=== PATIENT | female | born 1980 | race Caucasian/White ===

== ENCOUNTER 2023-09-15 11:18 | Outpatient (AMB) | payer MEDICARE, MEDICAID, SELFPAY ==
--- NOTE | 2023-09-15 11:22 | MHC.OFFVIS ---
Vital Signs 09/15/23 11:47 Height 5 ft 8 in Weight 172 lb 6 oz BMI 26.2 BP 136/84 Blood Pressure Location Lt brachial Position Sitting Respiration 16 Pulse 93 Pulse Source Pulse Oximeter Pulse Oximetry (%) 97 Oxygen Delivery Method Room Air Intake Visit Reasons: CHRONIC NECK AND BACK PAIN Intake Note: Patient comes in for initial visit was referred by primary care. She was accompanied by?sister Keira. Reports pain 10/22. Accompanied by: Sister Allergies No Known Allergies Allergy (Verified 09/15/23 11:41) HPI Comments Details: Blanca is very pleasant 43 years old female who presents in my office with complains on severe pain in the neck as well as pain on the right shoulder and pain in between the shoulder blades. 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 She did not have pain after that. However she went for another neurosurgical procedure in 2019 when 100 meningioma tumors were removed from her neck and she reported that after that surgery she started to experience chronic neck pain. The surgeries were performed as [facility]. She reports that she can not sleep normally can not do activities of daily living she can not take care of herself but she can not function normally. 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 She needs walker or cane for ambulation. She reports that cold weather aggravates her pain as well as movements. Heat and oral medications aggravate his pain as well. She had an MRI 6 months ago at [facility] her cervical spine. She never had physical therapy and in this case physical therapy probably is relevant. She never had any injections. She is currently under contract with her doctor who prescribes her benzodiazepines, Adderall, as well as small doses of the opioids. The patient tries to stretch out those doses of the opioids. Her past medical history besides described above is significant for headaches hypertension fatigue dizziness day and fainting and menstrual dysfunction. The least of her surgeries are as follows right ear tumor removal 2008 cervical laminectomy 2015 left ear decompression 2016 CLINICAL EDUCATION ASSISTANT shunt placement 2018, brain meningioma removed to 2019 hysterectomy and repair of vaginal cuff DC dehiscence 2021 and yet another surgery on the brain in 2023. She denies smoking cigarettes drinking alcohol she drinks coffee and she very rarely consumes cannabis edibles. She denies addiction to the drugs. [facility] Medical History (Updated 09/15/23 @ 12:45 by Alexis López MD) Hypothyroidism Pernicious anemia Vestibular schwannoma Meningioma, cerebral ADHD (attention deficit hyperactivity disorder) Family History (Updated 09/15/23 @ 12:05 by Maisha Alberto) Father DM type 2 (diabetes mellitus, type 2) HTN (hypertension) Oropharyngeal cancer Maternal Grandfather DM type 2 (diabetes mellitus, type 2) HTN (hypertension) Hyperlipidemia Myocardial infarction Brother HTN (hypertension) Paternal Grandmother HTN (hypertension) Hyperlipidemia Alcoholism Depression Skin cancer Social History (Updated 09/15/23 @ 12:00 by Maisha Alberto) Alcohol intake: current Patient Tobacco Use Status: Former Tobacco user Review of Systems Const Reports fatigue, Reports headache(s), Denies weight gain and Denies weight loss Eyes Denies blurry vision ENT Denies Normal hearing present, Reports headache(s) and Reports hearing loss Card Denies dyspnea Resp Denies cough and Denies dyspnea GI Denies constipation and Denies diarrhea Denies urinary frequency and Denies dysuria Musc Denies numbness Neuro Denies Normal hearing present, Denies Abnormal speech present, Denies confusion, Reports headache(s), Denies numbness and Denies Sensory deficit (Neuro) Psych Denies confusion and Denies depression Endo Reports fatigue Physical Exam Vital Signs: Last Vital Signs Pulse 93 09/15/23 11:47 Resp 16 09/15/23 11:47 BP 136/84 09/15/23 11:47 Pulse Ox 97 09/15/23 11:47 Oxygen Delivery Method Room Air 09/15/23 11:47 BMI result Body Mass Index 26.2 Const General: no acute distress; No confusion Orientation/consciousness: patient oriented x3 and No confusion Eyes General: appearance normal, both eyes and all related structures Pupils: Equal, round and reactive pupils present EOM: EOMs intact bilaterally Neck Other: On inspection there is very well-healed scar in the projection of the posterior neck spreading from approximately C3 to all the way down C7 projection of the vertebral spinous processes in the neck. There is no signs of inflammation, there is no redness no swelling no tenderness on palpation. Neck: No full ROM Chest Chest palpation & inspection: normal inspection of the chest Resp Effort & Inspection: normal respiratory effort, able to speak in complete sentences, normal respiratory pattern, no audible wheezes and no cough Cardio Jugular venous distension: no JVD GI Inspection: Yes normal to inspection Neuro General: patient oriented x3, gait normal and No confusion Cranial nerves: Yes Equal, round and reactive pupils present and No Normal hearing present Speech: No Abnormal speech present Gait exam (Neuro): Normal gait present Motor exam (neuro): 5/5 motor strength present throughout Sensory Exam: No Sensory deficit (Neuro) Extrem General: No pedal edema Psych Speech and movement: Normal speech and movement present Affect: normal affect Attitude: cooperative Thought process: Normal thought process present Thought content: Normal thought content present Insight: Good insight present (Psych) Judgement: Good judgement present (Psych) Assessment & Plan Assessment & Plan (1) Osteoarthritis of shoulder region: Code(s): M19.019 - Primary osteoarthritis, unspecified shoulder Category: Medical (2) Neurofibromatosis, type 2: Code(s): Q85.02 - Neurofibromatosis, type 2 Category: Medical (3) Postlaminectomy syndrome, cervical region: Code(s): M96.1 - Postlaminectomy syndrome, not elsewhere classified Category: Medical (4) Chronic pain syndrome: Code(s): G89.4 - Chronic pain syndrome Category: Medical Plan This patient is suffering from severe, relentless, terminal degenerative nerve disease which eventually can cause of this patient. She already has increased intracranial pressure and she has CLINICAL EDUCATION ASSISTANT shunt. She already had extensive procedures on her brain for removal of meningiomas and schwannomas. She is suffering from severe pain. I offered her to ways to treat her pain. I can admit her to our chronic opioid program and continue prescribing opioids until the rest of her days or I could offer her implantation of the intrathecal pain pump to help her pain with very small doses of the intrathecal sufentanyl medication. Patient stated that she already had so many surgeries and in the future she might face another surgeries on her cranium involved cervical spine, thoracic spine or lumbar spine. Those surgeries will be debilitating and recovery will be prolonged and difficult. She decided to go for chronic oral opioid therapy with us. However the question remains whether by signing the contract for opioid therapy with us she will undermine the contract for Adderall with her primary care physician. I need primary care physician to send me effects stating otherwise. Then I will be able to invite her in this office and we will discuss chronic opioid therapy. I will schedule for now appointment with her for 1 month. Also she is suffering from posterior shoulder pain which seem to be not related to her pain in the back of the neck. I will send her for the x-ray of the right shoulder to rule out arthritis in the shoulder joint. I also requested her to sign medical information release note so we can get images from [facility]. Orders: Orders XR shoulder RT min 2V Today M19.019 - Primary osteoarthritis, unspecified shoulder Patient Instructions: Patient is clinically and she uses telephone and help of her sister to communicate. That is why the entire conversation today took more than 1 hour. Coding Level of Care Code New Pt Level 5 (12516) Diagnoses Osteoarthritis of shoulder region M19.019 Neurofibromatosis, type 2 Q85.02 Postlaminectomy syndrome, cervical region M96.1 Chronic pain syndrome G89.4
[2023-09-15 11:47] VITALS: BP 136/84; PULSE 93; RESP 16; O2SAT 97; BMI 26.2
== END 2023-09-15 12:44 | disposition home or self-care (01) ==
PROVIDERS: PCP Pediatrics; Referring Provider Pediatrics; Visit Provider Anesthesiology
DX: M19.019 Primary osteoarthritis, unspecified shoulder (principal); Q85.02 Neurofibromatosis, type 2; M96.1 Postlaminectomy syndrome, not elsewhere classified; G89.4 Chronic pain syndrome
CPT/HCPCS: 99205

== ENCOUNTER → 2023-09-15 11:18 | Outpatient (BNVA) | payer MEDICARE, MEDICAID, SELFPAY | PROVIDERS: PCP Pediatrics; Referring Provider Pediatrics; Visit Provider Anesthesiology | DX: M54.2 Cervicalgia (principal); M54.9 Dorsalgia, unspecified; M19.011 Primary osteoarthritis, right shoulder; Q85.02 Neurofibromatosis, type 2; M96.1 Postlaminectomy syndrome, not elsewhere classified; G89.4 Chronic pain syndrome; Z79.891 Long term (current) use of opiate analgesic | CPT/HCPCS: 99202 ==

== ENCOUNTER 2023-09-18 11:54 | Outpatient (REF) | payer MEDICARE, MEDICAID, SELFPAY ==
--- NOTE | ~2023-09-18 | XR_ITS ---
EXAMINATION: XR SHOULDER, RIGHT CLINICAL INFORMATION: Right shoulder pain. Osteoarthritis. COMPARISON: None available. TECHNIQUE: AP, Grashey, scapular Y views of the right shoulder. FINDINGS: The bones and soft tissues are normal. No fracture. Glenohumeral and acromioclavicular alignment is anatomic with normal joint space. No abnormal soft tissue calcifications. XR/XR shoulder RT min 2V IMPRESSION: Unremarkable examination.
== END 2023-09-18 11:55 | disposition home or self-care (01) ==
LOC: HO.HMGCX 11:54
PROVIDERS: Visit Provider Anesthesiology
DX: M19.011 Primary osteoarthritis, right shoulder (principal)
CPT/HCPCS: 73030

== ENCOUNTER → 2023-09-30 09:42 | Outpatient (BNVA) | payer MEDICARE, MEDICAID, SELFPAY | PROVIDERS: PCP Pediatrics; Visit Provider Anesthesiology | DX: Z51.81 Encounter for therapeutic drug level monitoring (principal); Z79.899 Other long term (current) drug therapy | CPT/HCPCS: 99211 ==

== ENCOUNTER 2023-10-13 13:18 | Outpatient (AMB) | payer MEDICARE, MEDICAID, SELFPAY ==
--- NOTE | 2023-10-13 13:20 | MHC.OFFVIS ---
Vital Signs 10/13/23 13:21 Height 5 ft 8 in Weight 170 lb 8 oz BMI 25.9 BP 124/83 Blood Pressure Location Rt brachial Position Sitting Pulse 122 H Pulse Source Pulse Oximeter Pulse Oximetry (%) 100 Oxygen Delivery Method Room Air Intake Visit Reasons: 1 Month Follow Up/Opioid Contract Discussion Intake Note: Blanca is a 43 year old female who presents to the office today for a 1 month follow up/opiod contract discussion. Allergies No Known Allergies Allergy (Verified 10/13/23 13:24) HPI Comments Details: Blanca is back in my office to get started on chronic opioid program. Very prolonged and detailed conversation was held. On PHQ questionnaire patient is score was equal to 8. On addiction score questionnaire her score was equal to 12. Therefore she was admitted to the program with the total score of 20 which justifies moderate risk for opioid addiction. She was explained opioid contract opioid consent and information on chronic opioid therapy. The explanation was made via special phone application, the patient is deaf. Her sister was also presenting during the conversation and she was helping patient to understand the nature of the contract in details of the agreement. The patient is taking benzodiazepines as a muscle relaxants, she is currently on Valium. We agreed that we will taper Valium down as soon as it is feasible. To help her with the spastic sensation in his shoulder I will start her on the baclofen 10 mg t.i.d.. We agreed that she will take her Valium only 2 pills a day. I also explained to her to not to take her Valium within 2 hours of her opioid oxycodone. We also agreed that she will not be taking Valium and oxycodone within 2 hours of going to bed. I will prescribe her Narcan. I explained to the patient and to her sister Alyson. They both expressed understanding. Safety storage of the opioid medication was discussed. Patient also was explained that only in this office she will be able to receive scheduled to and schedule 3 substances except Adderall which is prescribed to her by her primary care physician. She was explained that only in the operating room or emergency room as well as on the hospital floor she will be able to be prescribed opioid medications by other providers. She will schedule appointment with us in 2 weeks. Will prescribe the patient next opioid prescription after the pill count. Prior: very pleasant 43 years old female who presents in my office with complains on severe pain in the neck as well as pain on the right shoulder and pain in between the shoulder blades. 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 She did not have pain after that. However she went for another neurosurgical procedure in 2019 when 100 meningioma tumors were removed from her neck and she reported that after that surgery she started to experience chronic neck pain. The surgeries were performed as [facility]. 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 She needs walker or cane for ambulation. She had an MRI 6 months ago at [facility] her cervical spine. She never had physical therapy and in this case physical therapy probably is irrelevant. She never had any injections. [facility] Medical History (Updated 09/15/23 @ 12:45 by Alexis López MD) Hypothyroidism Pernicious anemia Vestibular schwannoma Meningioma, cerebral ADHD (attention deficit hyperactivity disorder) Family History (Updated 09/15/23 @ 12:05 by Maisha Alberto) Father DM type 2 (diabetes mellitus, type 2) HTN (hypertension) Oropharyngeal cancer Maternal Grandfather DM type 2 (diabetes mellitus, type 2) HTN (hypertension) Hyperlipidemia Myocardial infarction Brother HTN (hypertension) Paternal Grandmother HTN (hypertension) Hyperlipidemia Alcoholism Depression Skin cancer Social History (Updated 09/15/23 @ 12:00 by Maisha Alberto) Alcohol intake: current Patient Tobacco Use Status: Former Tobacco user Review of Systems Const All systems reviewed & are unremarkable except as noted in HPI and below ENT Denies Normal hearing present Neuro Denies Normal hearing present, Denies Abnormal speech present, Denies confusion and Denies Sensory deficit (Neuro) Psych Denies confusion Physical Exam Vital Signs: Last Vital Signs Pulse 122 H 10/13/23 13:21 BP 124/83 10/13/23 13:21 Pulse Ox 100 10/13/23 13:21 Oxygen Delivery Method Room Air 10/13/23 13:21 BMI result Body Mass Index 25.9 Const General: no acute distress; No confusion Orientation/consciousness: patient oriented x3 and No confusion Eyes General: appearance normal, both eyes and all related structures Pupils: Equal, round and reactive pupils present EOM: EOMs intact bilaterally Neck Other: On inspection there is very well-healed scar in the projection of the posterior neck spreading from approximately C3 to all the way down C7 projection of the vertebral spinous processes in the neck. There is no signs of inflammation, there is no redness no swelling no tenderness on palpation. Neck: No full ROM Chest Chest palpation & inspection: normal inspection of the chest Resp Effort & Inspection: normal respiratory effort, able to speak in complete sentences, normal respiratory pattern, no audible wheezes and no cough Cardio Jugular venous distension: no JVD GI Inspection: Yes normal to inspection Neuro General: patient oriented x3, gait normal and No confusion Cranial nerves: Yes Equal, round and reactive pupils present and No Normal hearing present Speech: No Abnormal speech present Gait exam (Neuro): Normal gait present Motor exam (neuro): 5/5 motor strength present throughout Sensory Exam: No Sensory deficit (Neuro) Extrem General: No pedal edema Psych Speech and movement: Normal speech and movement present Affect: normal affect Attitude: cooperative Thought process: Normal thought process present Thought content: Normal thought content present Insight: Good insight present (Psych) Judgement: Good judgement present (Psych) Assessment & Plan Assessment & Plan (1) Osteoarthritis of shoulder region: Code(s): M19.019 - Primary osteoarthritis, unspecified shoulder Category: Medical (2) Neurofibromatosis, type 2: Code(s): Q85.02 - Neurofibromatosis, type 2 Category: Medical (3) Postlaminectomy syndrome, cervical region: Code(s): M96.1 - Postlaminectomy syndrome, not elsewhere classified Category: Medical (4) Chronic pain syndrome: Code(s): G89.4 - Chronic pain syndrome Category: Medical Plan This patient is suffering from severe, relentless, terminal degenerative nerve disease which eventually can cause of this patient. She already has increased intracranial pressure and she has STRUCTURAL STEEL WORKER HELPER shunt. She already had extensive procedures on her brain for removal of meningiomas and schwannomas. She is suffering from severe pain. She is admitted to our opioid program. The discussion is as above. The patient PHQ score is equal to 8. The patient's addiction questioning score is equal to 12. Total score is equal to 20 therefore her risk of addiction is moderate. The Adderall will be prescribed by primary care physician. The rest of the medications will be prescribed only in this office including scheduled 2 and schedule 3 prescriptions. Medications: New baclofen 10 mg PO TID 90 tabs 6RF 30 days naloxone 4 mg/actuation spray 1 dose into ONE nostril; alternate nostrils w each dose until help arrives 4 mg intranasal Q2M PRN 2 ea 8RF opioid overdose 1 day oxycodone Partial Fill upon patient request. 5 mg PO QID PRN 120 tabs 0RF pain 30 days Patient Instructions: I here by testify that I spent 55 minutes in conversation with this patient as well as planning her care and organizing this note. Coding Level of Care Code Est Pt Level 5 (50340) Diagnoses Osteoarthritis of shoulder region M19.019 Neurofibromatosis, type 2 Q85.02 Postlaminectomy syndrome, cervical region M96.1 Chronic pain syndrome G89.4
[2023-10-13 13:21] VITALS: BP 124/83; PULSE 122; O2SAT 100; BMI 25.9
== END 2023-10-13 15:01 | disposition home or self-care (01) ==
PROVIDERS: PCP Pediatrics; Visit Provider Anesthesiology
DX: G89.4 Chronic pain syndrome (principal); M19.019 Primary osteoarthritis, unspecified shoulder; M96.1 Postlaminectomy syndrome, not elsewhere classified; Q85.02 Neurofibromatosis, type 2
CPT/HCPCS: 99215

== ENCOUNTER → 2023-10-13 13:18 | Outpatient (BNVA) | payer MEDICARE, MEDICAID, SELFPAY | PROVIDERS: PCP Pediatrics; Visit Provider Anesthesiology | DX: M19.011 Primary osteoarthritis, right shoulder (principal); G89.4 Chronic pain syndrome; Q85.02 Neurofibromatosis, type 2; M96.1 Postlaminectomy syndrome, not elsewhere classified | CPT/HCPCS: 99212 ==

== ENCOUNTER 2023-10-28 11:05 | Outpatient (AMB) | payer MEDICARE, MEDICAID, SELFPAY ==
--- NOTE | 2023-10-28 11:06 | A.OFFVIS_ITS ---
Vital Signs 10/28/23 11:17 Height 5 ft 8 in Weight 175 lb BMI 26.6 BP 137/96 H Blood Pressure Location Lt brachial Position Sitting Pulse 109 H Pulse Source Pulse Oximeter Pulse Oximetry (%) 97 Oxygen Delivery Method Room Air Intake Visit Reasons: PILL COUNT Intake Note: Blanca comes in today for a pill count to oxycodone, patient should have 64 tablets and presents with 80 tablets which she last took today 10/28/23 6:30am. 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 She is deaf but able to communicate back after receiving information on her live transcribe domingo on the iPhone. Today, she is here for a pill count. Patient is supposed to have #64 pills, in her possession has #80 pills. This demonstrates a responsible attitude in regards to the medication regimen. Patient continues to report reasonable pain relief on her regimen of oxycodone 5 mg Q6H prn with no noted side effects. Patient also takes Adderall, prescribed by a primary care physician. She is tapering down Valium, currently twice a day, and at least 2 hours apart with oxycodone. She avoids Valium at bedtime as previously stated. Patient also started baclofen 1-2 pills per day without noted side effects. Patient's sister reports patient is starting new oral chemotherapy medication, rigatinib, prescribed via [facility]. She already has increased intracranial pressure and she has SKIVER WELT END shunt. Patient underwent extensive procedures on her brain for removal of meningiomas and schwannomas. She is in moderate-severe daily pain and reports current opioid regime allows her to be less symptomatic, more functional, and have better sleep. The patient PHQ score is equal to 8. The patient's addiction questioning score is equal to 12. Total score is equal to 20 therefore her risk of addiction is moderate. Denies any constipation, nausea, sedation, dizziness, or urinary retention. She reports increased ability to perform activities of daily living, better sleep, better interact socially and be more functional. PRIOR: Blanca is back in my office to get started on chronic opioid program. Very prolonged and detailed conversation was held. On PHQ questionnaire patient is score was equal to 8. On addiction score questionnaire her score was equal to 12. Therefore she was admitted to the program with the total score of 20 which justifies moderate risk for opioid addiction. She was explained opioid contract opioid consent and information on chronic opioid therapy. The explanation was made via special phone application, the patient is deaf. Her sister was also presenting during the conversation and she was helping patient to understand the nature of the contract in details of the agreement. The patient is taking benzodiazepines as a muscle relaxants, she is currently on Valium. We agreed that we will taper Valium down as soon as it is feasible. To help her with the spastic sensation in his shoulder I will start her on the baclofen 10 mg t.i.d.. We agreed that she will take her Valium only 2 pills a day. I also explained to her to not to take her Valium within 2 hours of her opioid oxycodone. We also agreed that she will not be taking Valium and oxycodone within 2 hours of going to bed. I will prescribe her Narcan. I explained to the patient and to her sister Alyson. They both expressed understanding. Safety storage of the opioid medication was discussed. Patient also was explained that only in this office she will be able to receive scheduled to and schedule 3 substances except Adderall which is prescribed to her by her primary care physician. She was explained that only in the operating room or emergency room as well as on the hospital floor she will be able to be prescribed opioid medications by other providers. She will schedule appointment with us in 2 weeks. Will prescribe the patient next opioid prescription after the pill count. Prior: very pleasant 43 years old female who presents in my office with complains on severe pain in the neck as well as pain on the right shoulder and pain in between the shoulder blades. 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 She did not have pain after that. However she went for another neurosurgical procedure in 2019 when 100 meningioma tumors were removed from her neck and she reported that after that surgery she started to experience chronic neck pain. The surgeries were performed as [facility]. 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 She needs walker or cane for ambulation. She had an MRI 6 months ago at [facility] her cervical spine. She never had physical therapy and in this case physical therapy probably is irrelevant. She never had any injections. ON LICENSE OF [facility] Medical History Hypothyroidism Pernicious anemia Vestibular schwannoma Meningioma, cerebral ADHD (attention deficit hyperactivity disorder) Family History Father DM type 2 (diabetes mellitus, type 2) HTN (hypertension) Oropharyngeal cancer Maternal Grandfather DM type 2 (diabetes mellitus, type 2) HTN (hypertension) Hyperlipidemia Myocardial infarction Brother HTN (hypertension) Paternal Grandmother HTN (hypertension) Hyperlipidemia Alcoholism Depression Skin cancer Social History Alcohol intake: current Patient Tobacco Use Status: Former Tobacco user Review of Systems Const All systems reviewed & are unremarkable except as noted in HPI and below Physical Exam General: Appears afebrile. Alert and oriented. Mood and affect appropriate. Follows and participates in conversation appropriately. Respiratory effort is unlabored. No cough. Able to transition from sit to stand with assistance of family. Ambulates with use of cane, with limping. Psych Appearance: grossly normal Mental Status: mental status grossly normal Speech and movement: Clear speech present and Other speech and movement exam findings present (Psych) (deaf, communicated back with use of live transcribing domingo on iPhone) Affect: normal affect Attitude: cooperative Thought process: Normal thought process present Thought content: Normal thought content present, suicidality, no hallucinations and Depressive thoughts present Insight: Good insight present (Psych) Judgement: Good judgement present (Psych) Results Reviewed Results Reviewed: No imaging reports are available for review. Assessment & Plan Assessment & Plan (1) Osteoarthritis of shoulder region: Code(s): M19.019 - Primary osteoarthritis, unspecified shoulder Category: Medical (2) Neurofibromatosis, type 2: Code(s): Q85.02 - Neurofibromatosis, type 2 Category: Medical (3) Postlaminectomy syndrome, cervical region: Code(s): M96.1 - Postlaminectomy syndrome, not elsewhere classified Category: Medical (4) Chronic pain syndrome: Code(s): G89.4 - Chronic pain syndrome Category: Medical Plan Patient has shown accountability for her medication regimen and the pill count was accurate. There is no evidence of misuse, abuse or diversion at this time. [facility] reviewed. Refill for oxycodone for 30 days sent with an advanced date of 11/15/23. Patient is aware of monitoring for any side effects. Patient has Narcan at home. Patient is starting new oral chemotherapy medication, rigatibib, prescribed through [facility] to shrink cerebral meningiomas. Adderall prescribed by patient's PCP for ADHD, consistent per [facility] review. All questions were answered and the patient is in agreement with the plan. Will follow up in one month for a pill count with Dr. López or sooner if needed. Medications: Refilled oxycodone Partial Fill upon patient request. 5 mg PO QID 30 days PRN 120 tabs 0RF pain Coding Level of Care Code Est Pt Level 4 (33541) Diagnoses Osteoarthritis of shoulder region M19.019 Neurofibromatosis, type 2 Q85.02 Postlaminectomy syndrome, cervical region M96.1 Chronic pain syndrome G89.4
[2023-10-28 11:17] VITALS: BP 137/96; PULSE 109; O2SAT 97; BMI 26.6
== END 2023-10-28 11:38 | disposition home or self-care (01) ==
PROVIDERS: PCP Pediatrics; Visit Provider Nurse Practitioner Family
DX: G89.4 Chronic pain syndrome (principal); M19.019 Primary osteoarthritis, unspecified shoulder; Q85.02 Neurofibromatosis, type 2; Z79.891 Long term (current) use of opiate analgesic; M96.1 Postlaminectomy syndrome, not elsewhere classified
CPT/HCPCS: 99214

== ENCOUNTER → 2023-10-28 11:05 | Outpatient (BNVA) | payer MEDICARE, MEDICAID, SELFPAY | PROVIDERS: PCP Pediatrics; Visit Provider Nurse Practitioner Family | DX: M19.019 Primary osteoarthritis, unspecified shoulder (principal); M96.1 Postlaminectomy syndrome, not elsewhere classified; Q85.02 Neurofibromatosis, type 2; G89.4 Chronic pain syndrome; Z51.81 Encounter for therapeutic drug level monitoring; Z79.891 Long term (current) use of opiate analgesic | CPT/HCPCS: 99212 ==

== ENCOUNTER 2023-11-25 10:57 | Outpatient (AMB) | payer MEDICARE, MEDICAID, SELFPAY ==
--- NOTE | 2023-11-25 11:03 | A.OFFVIS_ITS ---
Vital Signs 11/25/23 11:12 11/25/23 11:13 Height 5 ft 8 in Weight 175 lb BMI 26.6 BP 172/100 H 172/104 H Blood Pressure Location Lt brachial Rt brachial Position Sitting Sitting Pulse 100 101 H Pulse Source Pulse Oximeter Pulse Oximeter Pulse Oximetry (%) 98 99 Oxygen Delivery Method Room Air Room Air Intake Visit Reasons: Pill Count Intake Note: Blanca comes in today for a pill count to oxycodone, patient should have 100 tablets and presents with 104 tablets which she last took today 11/25/23 at 5:30am. 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 She is deaf but able to communicate back after receiving information on her live transcribe domingo on the iPhone. Today, she is here for a pill count. Patient is supposed to have #100 pills, in her possession has #114 pills. This demonstrates a responsible attitude in regards to the medication regimen. Patient continues to report reasonable pain relief on her regimen of oxycodone 5 mg Q6H prn with no noted side effects. Patient also takes Adderall, prescribed by a primary care physician. Patient is tapering down Valium, currently twice a day, and at least 2 hours apart with oxycodone. She avoids Valium at bedtime as previously stated. Patient also started baclofen 1-2 pills per day without any improvement, reports increases in blood pressure and increased anxiety. Patient reports she started new oral chemotherapy medication, rigatinib, prescribed via [facility]. She has increased intracranial pressure and she has BRIM FLEXER shunt. Patient underwent extensive procedures on her brain for removal of meningiomas and schwannomas. She is in moderate-severe daily pain and reports current opioid regime allows her to be less symptomatic, more functional, and have better sleep. The patient PHQ score is equal to 8. The patient's addiction questioning score is equal to 12. Total score is equal to 20 therefore her risk of addiction is moderate. Denies any constipation, nausea, sedation, dizziness, or urinary retention. She reports increased ability to perform activities of daily living, better sleep, better interact socially and be more functional. PRIOR: Blanca is back in my office to get started on chronic opioid program. Very prolonged and detailed conversation was held. On PHQ questionnaire patient is score was equal to 8. On addiction score questionnaire her score was equal to 12. Therefore she was admitted to the program with the total score of 20 which justifies moderate risk for opioid addiction. She was explained opioid contract opioid consent and information on chronic opioid therapy. The explanation was made via special phone application, the patient is deaf. Her sister was also presenting during the conversation and she was helping patient to understand the nature of the contract in details of the agreement. The patient is taking benzodiazepines as a muscle relaxants, she is currently on Valium. We agreed that we will taper Valium down as soon as it is feasible. To help her with the spastic sensation in his shoulder I will start her on the baclofen 10 mg t.i.d.. We agreed that she will take her Valium only 2 pills a day. I also explained to her to not to take her Valium within 2 hours of her opioid oxycodone. We also agreed that she will not be taking Valium and oxycodone within 2 hours of going to bed. I will prescribe her Narcan. I explained to the patient and to her sister Alyson. They both expressed understanding. Safety storage of the opioid medication was discussed. Patient also was explained that only in this office she will be able to receive scheduled to and schedule 3 substances except Adderall which is prescribed to her by her primary care physician. She was explained that only in the operating room or emergency room as well as on the hospital floor she will be able to be prescribed opioid medications by other providers. She will schedule appointment with us in 2 weeks. Will prescribe the patient next opioid prescription after the pill count. Prior: very pleasant 43 years old female who presents in my office with complains on severe pain in the neck as well as pain on the right shoulder and pain in between the shoulder blades. 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 She did not have pain after that. However she went for another neurosurgical procedure in 2019 when 100 meningioma tumors were removed from her neck and she reported that after that surgery she started to experience chronic neck pain. The surgeries were performed as [facility]. She is deaf after surgery in 2020 when neuroma was removed from the vestibular tumor she is using telephone device to communicate. She needs walker or cane for ambulation. She had an MRI 6 months ago at [facility] her cervical spine. She never had physical therapy and in this case physical therapy probably is irrelevant. She never had any injections. REPLACED BY [facility] Medical History Hypothyroidism Pernicious anemia Vestibular schwannoma Meningioma, cerebral ADHD (attention deficit hyperactivity disorder) Family History Father DM type 2 (diabetes mellitus, type 2) HTN (hypertension) Oropharyngeal cancer Maternal Grandfather DM type 2 (diabetes mellitus, type 2) HTN (hypertension) Hyperlipidemia Myocardial infarction Brother HTN (hypertension) Paternal Grandmother HTN (hypertension) Hyperlipidemia Alcoholism Depression Skin cancer Social History (Updated 11/25/23 @ 11:12 by IGNACIO Rebollar) Alcohol intake: current Patient Tobacco Use Status: Former Tobacco user Review of Systems Const All systems reviewed & are unremarkable except as noted in HPI and below Denies body aches, Denies chills, Denies difficulty sleeping, Denies fever(s), Denies night sweats, Denies weakness and Denies weight loss Card Denies chest pain, Denies irregular heart rhythm, Denies lightheadedness, Denies palpitations and Denies dyspnea on exertion Resp Denies dyspnea on exertion Neuro Denies weakness Endo Denies palpitations Physical Exam Vital Signs: Last Vital Signs Pulse 101 H 11/25/23 11:13 BP 172/104 H 11/25/23 11:13 Pulse Ox 99 11/25/23 11:13 Oxygen Delivery Method Room Air 11/25/23 11:13 BMI result Body Mass Index 26.6 General: Appears afebrile. Alert and oriented. Mood and affect appropriate. Follows and participates in conversation appropriately. Respiratory effort is unlabored. No cough. Able to transition from sit to stand with assistance of family. Ambulates with use of cane, with limping. Neck Neck: Yes no lymphadenopathy, Yes supple, No anterior neck swelling, No torticollis, Yes no JVD and No prominent dorsocervical fat pad Back/Spine/Pelvis Cervical Spine: cervical ROM normal, cervical muscular tenderness, cervical spasm and No Cervical spine tenderness Psych Appearance: grossly normal Mental Status: mental status grossly normal Speech and movement: Clear speech present and Other speech and movement exam findings present (Psych) (deaf, communicated back with use of live transcribing domingo on iPhone) Affect: normal affect Attitude: cooperative Thought process: Normal thought process present Thought content: Normal thought content present, suicidality, no hallucinations and Depressive thoughts present Insight: Good insight present (Psych) Judgement: Good judgement present (Psych) Results Reviewed Results Reviewed: No imaging reports are available for review. Assessment & Plan Assessment & Plan (1) Postlaminectomy syndrome, cervical region: Code(s): M96.1 - Postlaminectomy syndrome, not elsewhere classified Category: Medical (2) Chronic pain syndrome: Code(s): G89.4 - Chronic pain syndrome Category: Medical (3) Muscle spasms of neck: Code(s): M62.838 - Other muscle spasm Category: Medical (4) Osteoarthritis of shoulder region: Code(s): M19.019 - Primary osteoarthritis, unspecified shoulder Category: Medical (5) Neurofibromatosis, type 2: Code(s): Q85.02 - Neurofibromatosis, type 2 Category: Medical Plan Patient has shown accountability for her medication regimen and the pill count was accurate. There is no evidence of misuse, abuse or diversion at this time. [facility] Refill for oxycodone for 30 days sent with an advanced date of 12/23/23. Patient is aware of monitoring for any side effects. Patient has Narcan at home. Patient has started new oral chemotherapy medication, rigatibib, prescribed through [facility] to shrink cerebral meningiomas. Adderall prescribed by patient's PCP for ADHD, consistent per [facility] review. Patient will discontinue Baclofen due to increased anxiety and elevated BP. I prescribed her chlorzoxazone. Side effects and precautions were discussed with patient and her family. All questions were answered and the patient is in agreement with the plan. Follow up in one month for a pill count with Dr. López or sooner if needed. Medications: New chlorzoxazone 500 mg PO TID PRN 90 tabs 0RF muscle spasm 30 days G89.4 - Chronic pain syndrome, M62.838 - Other muscle spasm, M96.1 - Postlaminectomy syndrome, not elsewhere classified Refilled oxycodone Partial Fill upon patient request. 5 mg PO QID PRN 120 tabs 0RF pain 30 days Discontinued baclofen Discontinued Reason: Patient no longer taking 10 mg PO TID 30 days 90 tabs 6RF Coding Level of Care Code Est Pt Level 4 (29807) Complex EM visit Add On G2211 Diagnoses Postlaminectomy syndrome, cervical region M96.1 Chronic pain syndrome G89.4 Muscle spasms of neck M62.838 Osteoarthritis of shoulder region M19.019 Neurofibromatosis, type 2 Q85.02
[2023-11-25 11:12] VITALS: BP 172/100; PULSE 100; O2SAT 98; BMI 26.6
[2023-11-25 11:13] VITALS: BP 172/104; PULSE 101; O2SAT 99
== END 2023-11-25 11:29 | disposition home or self-care (01) ==
PROVIDERS: PCP Pediatrics; Visit Provider Nurse Practitioner Family
DX: M96.1 Postlaminectomy syndrome, not elsewhere classified (principal); G89.4 Chronic pain syndrome; M62.838 Other muscle spasm; M19.019 Primary osteoarthritis, unspecified shoulder; Q85.02 Neurofibromatosis, type 2
CPT/HCPCS: 99214; G2211

== ENCOUNTER → 2023-11-25 10:57 | Outpatient (BNVA) | payer MEDICARE, MEDICAID, SELFPAY | PROVIDERS: PCP Pediatrics; Visit Provider Nurse Practitioner Family | DX: M96.1 Postlaminectomy syndrome, not elsewhere classified (principal); G89.4 Chronic pain syndrome; M62.838 Other muscle spasm; M19.011 Primary osteoarthritis, right shoulder; Q85.02 Neurofibromatosis, type 2; Z51.81 Encounter for therapeutic drug level monitoring; Z79.891 Long term (current) use of opiate analgesic | CPT/HCPCS: 99212 ==

== ENCOUNTER 2023-12-09 10:41 | Outpatient (AMB) | payer MEDICARE, MEDICAID, SELFPAY ==
--- NOTE | 2023-12-09 10:49 | A.OFFVIS_ITS ---
Vital Signs 12/09/23 11:01 Height 5 ft 8 in Weight 163 lb 8 oz BMI 24.9 BP 142/88 H Blood Pressure Location Lt brachial Position Sitting Respiration 16 Pulse 102 H Pulse Source Pulse Oximeter Pulse Oximetry (%) 98 Oxygen Delivery Method Room Air Intake Visit Reasons: pill count/ medication review Intake Note: Patient comes in for pill count. She was accompanied by sister Sharee. Reports pain 3.5/10. Accompanied by: Sister Allergies No Known Allergies Allergy (Verified 12/09/23 11:03) HPI Comments Details: Blanca is back in my office today for the pill count and medications refill. She reports that for doses of the oxycodone for day is little bit too much she is managing her pain with only 2-3 pills. We agreed that she next time we will receive prescription only t.i.d. I will assume over the prescription of the Valium. Her pill count today: She supposed to have 44 medication pills in her possession. She presented with 84 pills in her possession. Therefore pill count is correct and demonstrates reliable attitude to were the opioid medications. She is on Adderall and Valium helps her to overcome Adderall side effects. She has Narcan prescribed at home. She today expressed desire eventually to go for taper of the opioid medications to decrease and hopefully eliminate oral opioids. She is in physical therapy. She started new oral chemotherapy medication, rigatinib, prescribed via [facility]. She has increased intracranial pressure and she has ORGAN P[employer] VOICER shunt. Patient underwent extensive procedures on her brain for removal of meningiomas and schwannomas. She is in moderate-severe daily pain and reports current opioid regime allows her to be less symptomatic, more functional, and have better sleep. The patient PHQ score is equal to 8. The patient's addiction questioning score is equal to 12. Total score is equal to 20 therefore her risk of addiction is moderate. Denies any constipation, nausea, sedation, dizziness, or urinary retention. She reports increased ability to perform activities of daily living, better sleep, better interact socially and be more functional. PRIOR: Blanca is back in my office to get started on chronic opioid program. Very prolonged and detailed conversation was held. On PHQ questionnaire patient is score was equal to 8. On addiction score questionnaire her score was equal to 12. Therefore she was admitted to the program with the total score of 20 which justifies moderate risk for opioid addiction. She was explained opioid contract opioid consent and information on chronic opioid therapy. The explanation was made via special phone application, the patient is deaf. Her sister was also presenting during the conversation and she was helping patient to understand the nature of the contract in details of the agreement. The patient is taking benzodiazepines as a muscle relaxants, she is currently on Valium. We agreed that we will taper Valium down as soon as it is feasible. To help her with the spastic sensation in his shoulder I will start her on the baclofen 10 mg t.i.d.. We agreed that she will take her Valium only 2 pills a day. I also explained to her to not to take her Valium within 2 hours of her opioid oxycodone. We also agreed that she will not be taking Valium and oxycodone within 2 hours of going to bed. I will prescribe her Narcan. I explained to the patient and to her sister Alyson. They both expressed understanding. Safety storage of the opioid medication was discussed. Patient also was explained that only in this office she will be able to receive scheduled to and schedule 3 substances except Adderall which is prescribed to her by her primary care physician. She was explained that only in the operating room or emergency room as well as on the hospital floor she will be able to be prescribed opioid medications by other providers. She will schedule appointment with us in 2 weeks. Will prescribe the patient next opioid prescription after the pill count. Prior: very pleasant 43 years old female who presents in my office with complains on severe pain in the neck as well as pain on the right shoulder and pain in between the shoulder blades. 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 She did not have pain after that. However she went for another neurosurgical procedure in 2019 when 100 meningioma tumors were removed from her neck and she reported that after that surgery she started to experience chronic neck pain. The surgeries were performed as [facility]. 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 She needs walker or cane for ambulation. She had an MRI 6 months ago at [facility] her cervical spine. She never had physical therapy and in this case physical therapy probably is irrelevant. She never had any injections. [facility] Medical History Hypothyroidism Pernicious anemia Vestibular schwannoma Meningioma, cerebral ADHD (attention deficit hyperactivity disorder) Family History Father DM type 2 (diabetes mellitus, type 2) HTN (hypertension) Oropharyngeal cancer Maternal Grandfather DM type 2 (diabetes mellitus, type 2) HTN (hypertension) Hyperlipidemia Myocardial infarction Brother HTN (hypertension) Paternal Grandmother HTN (hypertension) Hyperlipidemia Alcoholism Depression Skin cancer Social History (Updated 11/25/23 @ 11:12 by IGNACIO Rebollar) Alcohol intake: current Patient Tobacco Use Status: Former Tobacco user Review of Systems Const All systems reviewed & are unremarkable except as noted in HPI and below Physical Exam Vital Signs: Last Vital Signs Pulse 102 H 12/09/23 11:01 Resp 16 12/09/23 11:01 BP 142/88 H 12/09/23 11:01 Pulse Ox 98 12/09/23 11:01 Oxygen Delivery Method Room Air 12/09/23 11:01 BMI result Body Mass Index 24.9 General: Appears afebrile. Alert and oriented. Mood and affect appropriate. Follows and participates in conversation appropriately. Respiratory effort is unlabored. No cough. Able to transition from sit to stand with assistance of family. Ambulates with use of cane, with limping. Neck Neck: Yes no lymphadenopathy, Yes supple, No anterior neck swelling, No torticollis, Yes no JVD and No prominent dorsocervical fat pad Back/Spine/Pelvis Cervical Spine: cervical ROM normal, cervical muscular tenderness, cervical spasm and No Cervical spine tenderness Psych Appearance: grossly normal Mental Status: mental status grossly normal Speech and movement: Clear speech present and Other speech and movement exam findings present (Psych) (deaf, communicated back with use of live transcribing domingo on iPhone) Affect: normal affect Attitude: cooperative Thought process: Normal thought process present Thought content: Normal thought content present, suicidality, no hallucinations and Depressive thoughts present Insight: Good insight present (Psych) Judgement: Good judgement present (Psych) Assessment & Plan Assessment & Plan (1) Postlaminectomy syndrome, cervical region: Code(s): M96.1 - Postlaminectomy syndrome, not elsewhere classified Category: Medical (2) Chronic pain syndrome: Code(s): G89.4 - Chronic pain syndrome Category: Medical (3) Muscle spasms of neck: Code(s): M62.838 - Other muscle spasm Category: Medical (4) Osteoarthritis of shoulder region: Code(s): M19.019 - Primary osteoarthritis, unspecified shoulder Category: Medical (5) Neurofibromatosis, type 2: Code(s): Q85.02 - Neurofibromatosis, type 2 Category: Medical Plan Her pill count is correct with excessive amount of medication. I will decrease the doses of the opioids to 3 pills a day. Her new prescription will come on 12/20/2023. I also will assume prescription of the Valium/diazepam 5 mg b.i.d.. She is being prescribed Adderall and Adderall side effects including anxiety, jittery, tremors contracted by prescription of the volume. Unfortunately there is no other way to deal with this condition. She has Narcan at home. She had started new oral chemotherapy medication, rigatibib, prescribed through [facility] to shrink cerebral meningiomas. Adderall prescribed by patient's PCP for ADHD, consistent per [facility] review. She tried baclofen and it caused her anxiety increase. She presented today with her sister in my office and they understood the danger of consuming benzodiazepines and opioids together. She expressed understanding that she is not taking opioid medications within 2 hours of benzodiazepines. Her sister express that she understands how to use Narcan. Medications: New diazepam 5 mg PO BID PRN 60 tabs 5RF anxiety 30 days Changed From oxycodone Partial Fill upon patient request. 5 mg PO QID 30 days PRN 120 tabs 0RF pain To oxycodone Partial Fill upon patient request. 5 mg PO TID PRN 90 tabs 0RF pain 30 days Patient Instructions: I here by testify that I spent 35 minutes in conversation with this patient as well as planning her care and organizing this note. Coding Level of Care Code Est Pt Level 4 (30132) Diagnoses Postlaminectomy syndrome, cervical region M96.1 Chronic pain syndrome G89.4 Muscle spasms of neck M62.838 Osteoarthritis of shoulder region M19.019 Neurofibromatosis, type 2 Q85.02
[2023-12-09 11:01] VITALS: BP 142/88; PULSE 102; RESP 16; O2SAT 98; BMI 24.9
== END 2023-12-09 11:13 | disposition home or self-care (01) ==
PROVIDERS: PCP Pediatrics; Visit Provider Anesthesiology
DX: M96.1 Postlaminectomy syndrome, not elsewhere classified (principal); G89.4 Chronic pain syndrome; M62.838 Other muscle spasm; M19.019 Primary osteoarthritis, unspecified shoulder; Q85.02 Neurofibromatosis, type 2
CPT/HCPCS: 99214

== ENCOUNTER → 2023-12-09 10:41 | Outpatient (BNVA) | payer MEDICARE, MEDICAID, SELFPAY | PROVIDERS: PCP Pediatrics; Visit Provider Anesthesiology | DX: M96.1 Postlaminectomy syndrome, not elsewhere classified (principal); G89.4 Chronic pain syndrome; M62.838 Other muscle spasm; M19.019 Primary osteoarthritis, unspecified shoulder; Q85.02 Neurofibromatosis, type 2; Z51.81 Encounter for therapeutic drug level monitoring; Z79.891 Long term (current) use of opiate analgesic | CPT/HCPCS: 99212 ==

== ENCOUNTER 2023-12-20 11:05 | Outpatient (AMB) | payer MEDICARE, MEDICAID, SELFPAY ==
--- NOTE | 2023-12-20 11:08 | MHC.OFFVIS ---
Intake Visit Reasons: Pill count Intake Note: Patient comes in for pill count to Diazepam 5mg tablets. Presented with 63.5 tablets and should have 51 tablets. Allergies No Known Allergies Allergy (Verified 12/20/23 11:30) HPI Comments Details: Blanca is back in my office today for the pill count and medications refill. She had benzodiazepines prescribed to her since I took over her prescription medications. Today patient stated that she no longer wants me to prescribe her oxycodone, she wants to new line void her contract. I explained to her that there will be no consequences of her withdrawing from contract. We will printout a letter stating that her contract null and Void with us . The last opioid prescription and last benzodiazepine prescription which were given to her she can not use to taper medications down. She has prescription of naloxone at home. The benzodiazepine medication which was prescribed to her was counted today. She filled up Dr. Heard's prescription, she will not be able to fill up my prescription of the same medication until January 06. She supposed to have 51 pills today in her possession. She presents with 63.5 pills in her possession. Therefore her pill count correct and demonstrates responsible attitude to were the opioid medications. The patient PHQ score is equal to 8. The patient's addiction questioning score is equal to 12. Total score is equal to 20 therefore her risk of addiction is moderate. Denies any constipation, nausea, sedation, dizziness, or urinary retention. She reports increased ability to perform activities of daily living, better sleep, better interact socially and be more functional. PRIOR: Blanca is back in my office to get started on chronic opioid program. Very prolonged and detailed conversation was held. On PHQ questionnaire patient is score was equal to 8. On addiction score questionnaire her score was equal to 12. Therefore she was admitted to the program with the total score of 20 which justifies moderate risk for opioid addiction. She was explained opioid contract opioid consent and information on chronic opioid therapy. The explanation was made via special phone application, the patient is deaf. Her sister was also presenting during the conversation and she was helping patient to understand the nature of the contract in details of the agreement. The patient is taking benzodiazepines as a muscle relaxants, she is currently on Valium. We agreed that we will taper Valium down as soon as it is feasible. To help her with the spastic sensation in his shoulder I will start her on the baclofen 10 mg t.i.d.. We agreed that she will take her Valium only 2 pills a day. I also explained to her to not to take her Valium within 2 hours of her opioid oxycodone. We also agreed that she will not be taking Valium and oxycodone within 2 hours of going to bed. I will prescribe her Narcan. I explained to the patient and to her sister Alyson. They both expressed understanding. Safety storage of the opioid medication was discussed. Patient also was explained that only in this office she will be able to receive scheduled to and schedule 3 substances except Adderall which is prescribed to her by her primary care physician. She was explained that only in the operating room or emergency room as well as on the hospital floor she will be able to be prescribed opioid medications by other providers. She will schedule appointment with us in 2 weeks. Will prescribe the patient next opioid prescription after the pill count. Prior: very pleasant 43 years old female who presents in my office with complains on severe pain in the neck as well as pain on the right shoulder and pain in between the shoulder blades. 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 She did not have pain after that. However she went for another neurosurgical procedure in 2019 when 100 meningioma tumors were removed from her neck and she reported that after that surgery she started to experience chronic neck pain. The surgeries were performed as [facility]. She is deaf after surgery in 2020 when neuroma was removed from the vestibular tumor she is using telephone device to communicate. She needs walker or cane for ambulation. She had an MRI 6 months ago at [facility] her cervical spine. She never had physical therapy and in this case physical therapy probably is irrelevant. She never had any injections. [facility] Medical History Hypothyroidism Pernicious anemia Vestibular schwannoma Meningioma, cerebral ADHD (attention deficit hyperactivity disorder) Family History Father DM type 2 (diabetes mellitus, type 2) HTN (hypertension) Oropharyngeal cancer Maternal Grandfather DM type 2 (diabetes mellitus, type 2) HTN (hypertension) Hyperlipidemia Myocardial infarction Brother HTN (hypertension) Paternal Grandmother HTN (hypertension) Hyperlipidemia Alcoholism Depression Skin cancer Social History (Updated 11/25/23 @ 11:12 by IGNACIO Rebollar) Alcohol intake: current Patient Tobacco Use Status: Former Tobacco user Review of Systems Const All systems reviewed & are unremarkable except as noted in HPI and below Physical Exam General: Appears afebrile. Alert and oriented. Mood and affect appropriate. Follows and participates in conversation appropriately. Respiratory effort is unlabored. No cough. Able to transition from sit to stand with assistance of family. Ambulates with use of cane, with limping. Neck Neck: Yes no lymphadenopathy, Yes supple, No anterior neck swelling, No torticollis, Yes no JVD and No prominent dorsocervical fat pad Back/Spine/Pelvis Cervical Spine: cervical ROM normal, cervical muscular tenderness, cervical spasm and No Cervical spine tenderness Psych Appearance: grossly normal Mental Status: mental status grossly normal Speech and movement: Clear speech present and Other speech and movement exam findings present (Psych) (deaf, communicated back with use of live transcribing domingo on iPhone) Affect: normal affect Attitude: cooperative Thought process: Normal thought process present Thought content: Normal thought content present, suicidality, no hallucinations and Depressive thoughts present Insight: Good insight present (Psych) Judgement: Good judgement present (Psych) Assessment & Plan Assessment & Plan (1) Postlaminectomy syndrome, cervical region: Code(s): M96.1 - Postlaminectomy syndrome, not elsewhere classified Category: Medical (2) Chronic pain syndrome: Code(s): G89.4 - Chronic pain syndrome Category: Medical (3) Muscle spasms of neck: Code(s): M62.838 - Other muscle spasm Category: Medical (4) Osteoarthritis of shoulder region: Code(s): M19.019 - Primary osteoarthritis, unspecified shoulder Category: Medical (5) Neurofibromatosis, type 2: Code(s): Q85.02 - Neurofibromatosis, type 2 Category: Medical Plan Her pill count is correct with excessive amount of benzodiazepine medication. She decided to withdraw from contract. The letter will be sent to Dr. Heard about that contract null and void No new appointment will be scheduled for this patient. Coding Level of Care Code Est Pt Level 3 (14525) Diagnoses Postlaminectomy syndrome, cervical region M96.1 Chronic pain syndrome G89.4 Muscle spasms of neck M62.838 Osteoarthritis of shoulder region M19.019 Neurofibromatosis, type 2 Q85.02
== END 2023-12-20 11:36 | disposition home or self-care (01) ==
PROVIDERS: PCP Pediatrics; Visit Provider Anesthesiology
DX: M96.1 Postlaminectomy syndrome, not elsewhere classified (principal); G89.4 Chronic pain syndrome; M62.838 Other muscle spasm; M19.019 Primary osteoarthritis, unspecified shoulder; Q85.02 Neurofibromatosis, type 2
CPT/HCPCS: 99213

== ENCOUNTER → 2023-12-20 11:05 | Outpatient (BNVA) | payer MEDICARE, MEDICAID, SELFPAY | PROVIDERS: PCP Pediatrics; Visit Provider Anesthesiology | DX: M96.1 Postlaminectomy syndrome, not elsewhere classified (principal); M19.011 Primary osteoarthritis, right shoulder; G89.4 Chronic pain syndrome; Q85.02 Neurofibromatosis, type 2; M62.838 Other muscle spasm; Z79.891 Long term (current) use of opiate analgesic; Z51.81 Encounter for therapeutic drug level monitoring | CPT/HCPCS: 99212 ==